=== PATIENT | female | born 1980 | race Hispanic/Latino ===

== ENCOUNTER 2018-08-27 14:09 | Outpatient (CLI) | payer OTHER | END 2018-08-27 14:10 | disposition home or self-care (01) | LOC: BICMAMMO 14:09 | PROVIDERS: ATTEND Obstetrics & Gynecology | DX: Z12.31 Encounter for screening mammogram for malignant neoplasm of breast (principal); R92.1 Mammographic calcification found on diagnostic imaging of breast; Z80.3 Family history of malignant neoplasm of breast | CPT/HCPCS: 77063; 77067 ==

== ENCOUNTER 2019-04-10 21:12 | Emergency (ER) | payer OTHER, SELFPAY ==
[2019-04-10 21:39] LABS: #Basophils 0.1 thou/uL (0.0-0.2); #Eosinphils 0.2 thou/uL (0.0-0.7); #Lymphocytes 3.7 thou/uL (1.20-3.40); #Monocytes 0.5 thou/uL (0.11-0.59); #Neutrophils 7.2 thou/uL (1.40-6.50); %Basophils 0.7 % (0.0-1.0); %Eosinophils 2.1 % (0.0-10.0); %Lymphocytes 31.6 % (21.0-51.0); %Monocytes 4.3 % (0.0-10.0); %Neutrophils 61.3 % (42.0-75.0); Hemoglobin 14.1 g/dL (12.0-16.0); Mean Corpuscular HGB CONC 34.5 g/dL (32.0-36.0); Mean Corpuscular Hemoglobin 31.4 pg (27.0-31.0); Mean Corpuscular Volume 90.8 fL (78.0-98.0); Mean Platelet Volume 7.7 fL (7.4-10.4); Platelet Count 326 thou/uL (130-400); RBC Distribution Width 11.5 % (11.5-14.5); Red Blood Cell (RBC) Count 4.49 mill/uL (4.20-5.40); White Blood Cell (WBC) Count 11.8 thou/uL (4.8-10.8)
--- NOTE | 2019-04-10 21:46 | RAD ---
CHEST ONE VIEW 04/10/19 HISTORY: Cramping. Pain. COMPARISON RADIOGRAPH: 07/03/17 FINDINGS: The lungs are hypoinflated with linear atelectatic changes in both lung base. Possible superimposed l eft lower lobe air space opacity. Mild dextroscoliosis. No acute osseous abnormality. IMPRESSION: Lung hypoinflation with vascular crowding and bibasilar atelectatic change. Possible superimposed lef t basilar air space opacity. Repeat radiograph with full inspiration recommended. POS: HOME
[2019-04-10 22:00] LABS: ALT (SGPT) 28 U/L (8-55); AST (SGOT) 21 U/L (5-34); Albumin 4.7 g/dL (3.5-5.0); Alkaline Phosphatase 75 U/L (40-150); Anion Gap 16 mmol/L (10-20); BUN (Urea Nitrogen) 15 mg/dL (7.0-18.7); Bilirubin, Total 0.7 mg/dL (0.2-1.2); CK (CPK) 85 U/L (29-168); Calc. Creatinine Clearance 0 mL/min (70-130); Carbon Dioxide 24 mmol/L (22-29); Chloride 103 mmol/L (98-107); Estimated GFR-MDRD 69; Globulin 2.9 g/dL (2.4-3.5); Glucose 94 mg/dL (70-105); Lipase 21 U/L (8-78); Potassium 3.8 mmol/L (3.5-5.1); Protein, Total 7.6 g/dL (6.0-8.3); Sodium 139 mmol/L (136-145)
[2019-04-11] MEDS ORDERED: Ketorolac Tromethamine 30 MG/ML VIAL ONE (00:21)
[2019-04-11 01:20] LABS: Pregnancy Test - Urine (BHCG) Negative (Negative); Pregu Control Background? CLEAR/WHITE (CLR/WHITE); Pregu Control Bar Appear? YES (CONTROL BAR); Specific Gravity 1.016 (1.002-1.036)
[2019-04-11 02:28] LABS: Troponin I Less than 0.010 ng/mL (< 0.028)
--- NOTE | 2019-04-11 07:55 | CT ---
PRELIMINARY REPORT/[facility]/EMERGENCY AFTER HOURS PROCEDURE: EXAM: CT Angiography Chest With Contrast EXAM DATE/TIME: 04/11/2019 1:33 AM CLINICAL HISTORY: 38 years old, female; Signs and symptoms; Shortness of breath; Patient HX: [id number] presents to ED for chest pain. PT reports pain starts behind left breast and radiates to back. PT reports pain began 3 days ago, mild and constant, then today began cramping and getting increasingly worse, increased pain with breathing and movement. PT has no taken anything for SX. Denies cough or fever, denies abdominal pain, denies SOB, but reports difficulty breathing due to pain caused. Denies redness or swelling/ pain to breasts. No HX of similar SX, no HX of blood clot, no family HX of heart attack or blood clot in lungs, father had stroke at 56. Denies smoking or alcohol abuse. Hx- hbp, takes medication; No diabetes. TECHNIQUE: Imaging protocol: Axial computed tomographic angiography images of the chest with intravenous contrast using CT angiography protocol. Coronal and sagittal reformatted images were created and reviewed. 3D rendering: MIP reconstructed images were created and reviewed. COMPARISON: No relevant prior studies available. FINDINGS: Pulmonary arteries: No visible acute pulmonary embolism. Aorta: Normal. No aortic aneurysm. No aortic dissection. Lungs: There is a calcified granuloma in the left upper lobe. Pleural space: There is a small left pleural effusion and bibasilar dependent atelectasis. Heart: Normal. No cardiomegaly. No pericardial effusion. Lymph nodes: Unremarkable. No enlarged lymph nodes. Bones/joints: Unremarkable. No acute fracture. Soft tissues: Unremarkable. IMPRESSION: 1. There is a small left pleural effusion and bibasilar dependent atelectasis. 2. No visible acute pulmonary embolism. Thank you for allowing us to participate in the care of your patient. Dictated and Authenticated by: Ellis Cadena MD 04/11/2019 2:03 AM Central Time ([place] & [place]) FINAL REPORT CTA Angio Chest W WO Con History: [Pleuritic chest pain] Comparison: Chest radiograph prior day Findings/Impression: CT angiogram chest performed after the intravenous ministration of contrast. 3-D rendering provided. Findings and impression are concordant with the preliminary report. Transcribed Date/Time: 04/11/2019 8:08 AM
== END 2019-04-11 02:27 | disposition home or self-care (01) ==
LOC: ERS 21:12
DX: R07.9 Chest pain, unspecified (principal); I10 Essential (primary) hypertension; R06.02 Shortness of breath
CPT/HCPCS: 36415; 71045; 71275; 80053; 81025; 82550; 83690; 84484; 85025; 85379; 93005; 94760; 96374; J1885

== ENCOUNTER 2021-09-13 10:05 | Emergency (ER) | payer OTHER, SELFPAY ==
[2021-09-13 11:17] LABS: #Eosinphils 0.1 thou/uL (0.0-0.7); #Lymphocytes 1.3 thou/uL (1.20-3.40); #Monocytes 0.4 thou/uL (0.11-0.59); #Neutrophils 7.8 thou/uL (1.40-6.50); %Basophils 0.1 % (0.0-1.0); %Eosinophils 1.1 % (0.0-10.0); %Monocytes 4.6 % (0.0-10.0); %Neutrophils 81.2 % (42.0-75.0); Hemoglobin 14.8 g/dL (12.0-16.0); Mean Corpuscular HGB CONC 33.5 g/dL (32.0-36.0); Mean Corpuscular Hemoglobin 30.5 pg (27.0-31.0); Mean Corpuscular Volume 91.2 fL (78.0-98.0); Mean Platelet Volume 7.8 fL (7.4-10.4); Platelet Count 322 thou/uL (130-400); RBC Distribution Width 11.8 % (11.5-14.5); Red Blood Cell (RBC) Count 4.86 mill/uL (4.20-5.40); White Blood Cell (WBC) Count 9.6 thou/uL (4.8-10.8)
[2021-09-13 11:43] LABS: ALT (SGPT) 208 U/L (8-55); AST (SGOT) 222 U/L (5-34); Albumin 4.4 g/dL (3.5-5.0); Alkaline Phosphatase 108 U/L (40-110); Anion Gap 12 mmol/L (10-20); BUN (Urea Nitrogen) 11 mg/dL (7.0-18.7); Bilirubin, Total 2.4 mg/dL (0.2-1.2); Calc. Creatinine Clearance 0 mL/min (70-130); Calcium 9.7 mg/dL (7.8-10.44); Carbon Dioxide 28 mmol/L (22-29); Chloride 103 mmol/L (98-107); Globulin 3.6 g/dL (2.4-3.5); Glucose 99 mg/dL (70-105); Lipase 25 U/L (8-78); Potassium 3.6 mmol/L (3.5-5.1); Sodium 139 mmol/L (136-145)
[2021-09-13] MEDS ORDERED: Mag-Al 1200 mg/1200 mg/30 ML UDCUP ONE (12:43)
[2021-09-13] MEDS ORDERED: Lidocaine Viscous Sol 2% 15 ml UD Cup ONE (12:43)
[2021-09-13] MEDS ORDERED: Aspirin Chewable 81 MG TAB ONE (12:43)
== END 2021-09-13 13:21 | disposition home or self-care (01) ==
LOC: ERS 10:05
DX: R07.89 Other chest pain (principal); R74.8 Abnormal levels of other serum enzymes; I10 Essential (primary) hypertension; Z79.899 Other long term (current) drug therapy
CPT/HCPCS: 36415; 71045; 80053; 83690; 84484; 85025; 93005

== ENCOUNTER 2024-11-08 15:22 | Outpatient (CLI) | payer OTHER | END 2024-11-08 15:23 | disposition home or self-care (01) | LOC: CT 15:22 | PROVIDERS: ATTEND Family Medicine | DX: R31.29 Other microscopic hematuria (principal); K57.30 Diverticulosis of large intestine without perforation or abscess without bleeding; K80.20 Calculus of gallbladder without cholecystitis without obstruction | CPT/HCPCS: 74150 ==